=== PATIENT | female | born 1990 | race Caucasian/White ===

== ENCOUNTER 2019-01-26 23:58 | Emergency (ER) | payer BC ==
[~2019-01-26] VITALS: Ht 160 cm; Wt 118.0 kg
[2019-01-27 04:08] LABS: BASOPHILS % 0.5 % (0.0-2.0); EOSINOPHILS % 1.4 % (0.0-5.0); HEMATOCRIT. 39.2 % (36.0-48.0); HEMOGLOBIN. 12.8 g/dL (12.0-16.0); LYMPHOCYTES % 35.2 % (20.0-50.0); MEAN CORPUSCULAR HEMOGLOBIN 26.8 pg (28.0-32.0); MEAN CORPUSCULAR VOLUME 81.8 fL (81.0-99.0); MEAN PLATELET VOLUME 8.2 fl (7.4-10.4); MONOCYTES % 5.4 % (2.0-8.0); NEUTROPHILS % 57.5 % (40.0-76.0); PLATELET 305 x1000/uL (130-400); RED BLOOD CELL COUNT 4.79 mill/uL (4.2-5.4); RED CELL DISTRIBUTION WIDTH 15.3 % (11.6-14.6)
[2019-01-27 04:16] LABS: CHLORIDE 113 mEq/L (98-107)
[2019-01-27 04:33] LABS: CLARITY URINE CLOUDY (CLEAR); COLOR URINE YELLOW (YELLOW); KETONES URINE NEGATIVE (NEGATIVE); LEUKOCYTE ESTERASE URINE NEGATIVE (NEGATIVE); NITRITE URINE NEGATIVE (NEGATIVE); OCCULT BLOOD URINE NEGATIVE (NEGATIVE); PH URINE 5.5 (4.5-8.0); PROTEIN URINE NEGATIVE (NEGATIVE); SPECIFIC GRAVITY URINE 1.029 (1.005-1.030)
[2019-01-27] MEDS ORDERED: ACETAMINOPHEN 500MG TABLET PO ONE (05:00)
[2019-01-27] MEDS ORDERED: ACETAMINOPHEN 325MG TABLET PO PRN (06:30)
[2019-01-27 09:50] VITALS: BP 128/64
== END 2019-01-27 10:10 | disposition left against medical advice (07) ==
LOC: ER 23:58 → ENRESERV 01-27 08:13 → CANRESERV 01-27 08:13 → ER 01-27 10:10 → CANBEDREQ 01-27 21:12
DX: G93.2 Benign intracranial hypertension (principal); R20.2 Paresthesia of skin; R51 Headache; R61 Generalized hyperhidrosis
CPT/HCPCS: 36415; 71045; 81025; 84484; 93005; 99284